=== PATIENT | female | born 1945 | race Caucasian/White ===

== ENCOUNTER → 2023-09-06 | Outpatient (CLI) | payer MEDICARE, BC ==
--- NOTE | 2023-09-06 12:34 | XR ---
EXAMINATION TYPE: XR chest 2V DATE OF EXAM: 09/06/2023 10:52 AM CLINICAL INDICATION:Female, 78 years old with history of J44.9 COPD; [facility] COMPARISON: None TECHNIQUE: XR chest 2V Frontal view of the chest. FINDINGS: Lungs/Pleura: There is flattening of the diaphragm with increased lucency of the lungs. No evidence o f pneumothorax, pleural effusion or focal consolidation. Pulmonary vascularity: Unremarkable. Heart/mediastinum: Cardiomediastinal silhouette is unremarkable. Musculoskeletal: No acute osseous pathology. Other findings: None IMPRESSION: 1. No acute cardiopulmonary disease process. 2. COPD changes.
== END | disposition home or self-care (01) ==
LOC: RADXRMAIN 10:31
PROVIDERS: ATTEND Family Medicine
DX: J44.9 Chronic obstructive pulmonary disease, unspecified (principal)
CPT/HCPCS: 71046

== ENCOUNTER 2024-04-04 06:45 | Day surgery (SDC) | payer MEDICARE, BC ==
[2024-04-02 14:47] VITALS: BMI 40.7
--- NOTE | 2024-04-03 13:13 | P.GSHP ---
History of Present Illness H&P Date: 04/03/24 A 9-year-old female with a 5 mm left ureterovesical junction stone. She is attempted to pass it now over a couple of weeks and then unable to do so. She has been given treatment options and come for left ureteroscopy and laser lithotripsy, with possible stent - Constitutional Constitutional: Denies chills, Denies fever - EENT Eyes: denies blurred vision, denies pain Ears, nose, mouth and throat: Denies headache, Denies sore throat - Cardiovascular Cardiovascular: Denies chest pain, Denies shortness of breath - Respiratory Respiratory: Denies cough, Denies 7 - Gastrointestinal Gastrointestinal: Denies abdominal pain, Denies diarrhea, Denies nausea, Denies vomiting - Genitourinary (Female) Genitourinary: Denies dysuria, Denies hematuria - Genitourinary (Male) Genitourinary: Denies dysuria, Denies hematuria - Musculoskeletal Musculoskeletal: Denies myalgias - Integumentary Integumentary: Denies pruritus, Denies rash - Neurological Neurological: Denies numbness, Denies weakness - Psychiatric Psychiatric: Denies anxiety, Denies depression - Endocrine Endocrine: Denies fatigue, Denies weight change Past Medical History Past Medical History: Hyperlipidemia, Hypertension, Osteoarthritis (OA), Thyroid Disorder Additional Past Medical History / Comment(s): L ureter kidney stone, pre- diabetic, R buttock/sciatica intermittent pain History of Any Multi-Drug Resistant Organisms: None Reported Past Surgical History: Bariatric Surgery, Cholecystectomy, Joint Replacement, Orthopedic Surgery, Tubal Ligation Additional Past Surgical History / Comment(s): L and R knee replacement, lap band surg, lap band removal, R heel spur surgery Past Anesthesia/Blood Transfusion Reactions: No Reported Reaction Additional Past Anesthesia/Blood Transfusion Reaction / Comment(s): Pt states that she woke up in ICU after lap band removal surgery, states she is unsure if it was due to an issue with anesthesia. No history of blood transfusion. Smoking Status: Former smoker - Past Family History Father Family Medical History: Cancer Additional Family Medical History / Comment(s): Lung CA Mother Family Medical History: No Reported History Additional Family Medical History / Comment(s): at 91 years old, natural causes. Medications and Allergies Home Medications Medication Instructions Recorded Confirmed Type Amitriptyline HCl [Elavil] 50 mg PO HS 02/05/14 04/02/24 History Levothyroxine Sodium [Synthroid] 88 mcg PO DAILY 02/05/14 04/02/24 History Simvastatin [Zocor] 20 mg PO HS 02/05/14 04/02/24 History polyethylene glycoL 3350 [Miralax] 17 gm PO DAILY PRN #527 gm 03/21/24 04/02/24 Rx Cholecalciferol [Vitamin D3 (25 25 mcg PO DAILY 04/02/24 04/02/24 History Mcg = 1000 Iu)] Cyanocobalamin (Vitamin B-12) 5,000 mcg PO DAILY 04/02/24 04/02/24 History [Vitamin B-12] Famotidine [Pepcid] 20 mg PO DAILY PRN 04/02/24 04/02/24 History Multivitamins, Thera [Multivitamin 1 dose PO DAILY 04/02/24 04/02/24 History (formulary)] amLODIPine [Norvasc] 2.5 mg PO DAILY 04/02/24 04/02/24 History Allergies Allergy/AdvReac Type Severity Reaction Status Date / Time aspirin Allergy lip Verified 04/02/24 14:57 swelling,hives codeine AdvReac Nausea & Verified 04/02/24 14:57 Vomiting Surgical - Exam - General well developed, well nourished, no distress - Eyes normal ocular movement, no icteric - ENT no hearing loss, no congestion - Neck no masses, trachea midline - Respiratory normal respiratory effort, clear to auscultation - Abdomen Abdomen: soft, non tender, no guarding, no rigid, no rebound - Integumentary no rash, no abnormal pigmentation - Neurologic no disoriented, no combative - Psychiatric oriented to time, oriented to person, oriented to place, speech is normal, memory intact Results - Imaging CT scan - abdomen: report reviewed, image reviewed CT scan - pelvis: report reviewed, image reviewed Assessment and Plan Assessment: Pression: Left ureteral calculus with colic and obstruction Recommendations: Left ureteroscopy laser lithotripsy possible stent placement
[~2024-04-04 06:45] MED LIST: HYDROmorphone 0.5 MG/0.5 ML SYRINGE IVP PRN
--- NOTE | 2024-04-04 07:18 | XR ---
EXAMINATION TYPE: XR KUB DATE OF EXAM: 04/04/2024 6:59 AM CLINICAL HISTORY: Left-sided kidney stone TECHNIQUE: Two supine KUB images of the abdomen are obtained. COMPARISON: Abdominal x-ray 6 days earlier. FINDINGS: Exam is suboptimal secondary to patient's large body habitus. No definitive nephrolithiasis . Cholecystectomy clips are redemonstrated. Overall nonobstructive bowel gas pattern. Persistent scolio sis with multilevel spurring and disc space narrowing in the thoracolumbar spine. IMPRESSION: As above. [facility], , 04/04/2024 7:15 AM
[2024-04-04 07:43] LABS: Glucose,Whole Blood 106 mg/dL (70-110)
[2024-04-04] MEDS: LACTATED RINGERS 1,000 ML IV SCH (07:57)
[2024-04-04] MEDS: DEXAMETHASONE SOD PHOSPHATE 4 MG/ML 1 ML VIAL IV ONE (07:57)
[2024-04-04] MEDS: ONDANSETRON 4 MG/2 ML VIAL IVP ONE (07:58)
[2024-04-04] MEDS: LACTATED RINGERS 1,000 ML IV ONE (07:58)
[2024-04-04] MEDS: FAMOTIDINE 20 MG/2 ML VIAL IV STA (07:58)
[2024-04-04] MEDS ORDERED: fentaNYL (PF) 50 MCG/ML 2 ML AMP ONE (08:20)
[2024-04-04] MEDS ORDERED: SUCCINYLCHOLINE CHLORIDE 200 MG/10 ML VIAL IV ONE (08:20)
[2024-04-04] MEDS ORDERED: PHENYLEPHRINE 10 MG/ML VIAL ONE (08:20)
[2024-04-04] MEDS ORDERED: PROPOFOL 10 MG/ML 20 ML VIAL IV ONE (08:20)
[2024-04-04] MEDS ORDERED: LIDOCAINE 1% INJ 10MG/ML (20 ML MDV) ONE (08:20)
[2024-04-04] MEDS: IOPAMIDOL-370 100ML BTL MISCELLANE ONE (08:45)
--- NOTE | 2024-04-04 09:15 | P.OP ---
Date of Procedure: 04/04/24 Preoperative Diagnosis: Left ureteral and renal stones Postoperative Diagnosis: Left renal stones Procedure(s) Performed: Cystoscopy, left retrograde pyelogram, left ureteroscopy with laser lithotripsy Anesthesia: ROSE Surgeon: Jeremías Tavarez Estimated Blood Loss (ml): 0 Pathology: none sent Condition: stable Disposition: PACU Indications for Procedure: The patient is 79. She presented with a 6 mm distal ureteral stone and colic on the left. She also has some small left renal stones. She still is in colic. KUB today is uncertain as to whether the stone is in the distal ureter or not. She comes for cystoscopy probable left ureteroscopy laser lithotripsy. Description of Procedure: Patient brought to the operating suite. Given a general anesthetic. Placed in lithotomy position with a sterile prep and drape. Cystoscopy Foroblique lens and 21 British sheath identifies a normal urethra. The ureteral orifice ease are normal. The bladder mucosa is unremarkable. I do fluoroscopy see the left distal ureter and I cannot say for certain there is a stone. I thus passed an 8 cone-tip catheter in the left distal ureter. I inject contrast and followed up into the kidney. There is not appear to be any ureteral stone so therefore she must of passed it. The urine drained nicely. Will do ureteroscopy and laser lithotripsy to the remaining renal stones in the left kidney. An 035 wire was passed up into the kidney. Over the wire is passed a 11-13 British reentry sheath. The inner sheath is removed. I passed the flexible ureteroscope up into the kidney. I passed into each minor calyx. Known is seen in one of the middle pole minor calyces and is broken up with the 100 m laser probe and 8 W of energy. I find another stone in the lower pole calyx and break that up into tiny fragments. I do an intraoperative nephrostogram and see no evidence of remaining calculi. There is no obstruction. The fragments are broken and are so tiny is not worth basketing. Pullout ureteroscopy does not identify any obstruction or ureteral stones. The bladder was drained the patient is awakened returned recovery in good condition. She tolerated the procedure well be discharged home upon recovery and follow in the office in 1 week.
[2024-04-04 09:20] VITALS: TEMP 97
--- NOTE | 2024-04-04 09:44 | FL ---
EXAMINATION TYPE: FL urography retrograde DATE OF EXAM: 04/04/2024 COMPARISON: Same day abdominal x-ray HISTORY: Left-sided kidney stone TECHNIQUE: Fluoroscopy. FINDINGS: Fluoroscopic guidance was provided during cystoscopy with stone treatment procedure perfor med by Dr. Tavarez. A total of 61 seconds of fluoroscopic time was utilized during the procedure and tw o spot images was acquired. Total dose area product (DAP) in uGy*m?, mGy*cm? (or similar): 6.02. Annia ges acquired show access into the collecting system and proximal ureter. IMPRESSION: As Above. [facility], , 04/04/2024 9:42 AM
[2024-04-04 10:06] VITALS: RESP 18
[2024-04-04 10:35] VITALS: BP 143/71; PULSE 88
== END 2024-04-04 11:08 | disposition home or self-care (01) ==
LOC: OR 06:45
PROVIDERS: ATTEND Urology
DX: N20.2 Calculus of kidney with calculus of ureter (principal); E11.9 Type 2 diabetes mellitus without complications; E07.9 Disorder of thyroid, unspecified; E78.5 Hyperlipidemia, unspecified; I10 Essential (primary) hypertension; M19.90 Unspecified osteoarthritis, unspecified site; Z79.890 Hormone replacement therapy; Z88.5 Allergy status to narcotic agent; Z87.891 Personal history of nicotine dependence; Z90.49 Acquired absence of other specified parts of digestive tract; Z98.51 Tubal ligation status; Z79.899 Other long term (current) drug therapy
CPT/HCPCS: 74420; 74018; 52356; C1758; C1769; J0330; J1100; J0690; J2405; J2003; J3010; J3490; J2704; Q9967; J2371